=== PATIENT | female | born 1970 | race African-American/Black ===

== ENCOUNTER 2017-04-12 17:54 | Emergency (ER) | payer BC ==
--- NOTE | ~2017-04-12 | CR20 ---
[facility] A Service of [facility] RADIOLOGY TEXT RESULTS PATIENT: DOLORES GOODMAN LOCATION: SED : 72 UNIT #: [id number] AGE: [address]: Waleska Vences MD SEX: F ORDER DR: [id number] [address] [id number] [id number] E MR#: [id number] Acc #: [id number] NAME: DOLORES GOODMAN : 1970 SEX: F STUDY DATE/TIME: 04/12/2017 19:09 UNIT: SED ROOM: STUDY DESCRIPTION: CR Ankle Min 3 Views Lt Attending Physician: Waleska Vences M.D. Ordering Physician: Waleska Vences M.D. Primary Care Physician: Heraclio Quispe Aprn MEDICAL IMAGING REPORT This report is preliminary unless electronic signature is present. EXAM Left ankle, 3 views. COMPARISON 3 views left foot on the same date as well as on April 30, 2015. INDICATION 47-year-old female with left ankle pain since yesterday. No known injury. FINDINGS There is an os peroneum, normal anatomic variant. Bones are anatomically aligned. There is a tiny calcium density at the inferior tip of the lateral malleolus, favored to be chronic, perhaps due to remote sprain. Clinical correlation to exclude the possibility of acute avulsion fracture is recommended. IMPRESSION Tiny calcium density just inferior to the tip of the lateral malleolus, favored to be chronic but clinical correlation is recommended to exclude possibility of acute tiny avulsion fracture. Otherwise bones are anatomically aligned and intact. Dictated by... Niels Sheikh M.D. THIS IS AN ELECTRONICALLY VERIFIED REPORT Niels Sheikh M.D. at 04/18/2017 11:03 AM BLM/gz TD: 04/13/2017 12:06 JOB #: [id number] [facility] A Service of [facility] RADIOLOGY TEXT RESULTS PATIENT: DOLORES GOODMAN LOCATION: SED : 71 UNIT #: [id number] AGE: [address]: Waleska Vences MD SEX: F ORDER DR: MEDICAL IMAGING REPORT Page 1 of 1
--- NOTE | ~2017-04-12 | CR126 ---
[facility] A Service [facility] RADIOLOGY TEXT RESULTS PATIENT: DOLORES GOODMAN LOCATION: SED : [birth year] UNIT #: [id number] AGE: [address]: Waleska Vences MD SEX: F ORDER DR: [id number] [place] [id number] E MR#: [id number] Acc #: [id number] NAME: DOLORES GOODMAN : 1970 SEX: F STUDY DATE/TIME: 04/12/2017 19:09 UNIT: SED ROOM: STUDY DESCRIPTION: CR Foot Complete Min 3 View Lt Attending Physician: Waleska Vences M.D. Ordering Physician: Waleska Vences M.D. Primary Care Physician: Heraclio Quispe Aprn MEDICAL IMAGING REPORT This report is preliminary unless electronic signature is present. EXAM Left foot, 3 views COMPARISON April 30, 2015 as well as 3 views of the left ankle dated April 12, 2017. INDICATION 47-year-old female with left foot pain since yesterday. No known injury. FINDINGS There is a small os peroneum, a normal anatomic variant. Bones are anatomically aligned. No evidence of acute fracture or significant degenerative change. IMPRESSION Small os peroneum, a normal anatomic variant. Correlation with the site of the patient's pain is recommended. Otherwise normal exam. Dictated by... Niels Sheikh M.D. THIS IS AN ELECTRONICALLY VERIFIED REPORT Niels Sheikh M.D. at 04/18/2017 11:02 AM JOSE/ayala TD: 04/13/2017 12:09 JOB #: [id number] MEDICAL IMAGING REPORT [facility] A Service [facility] RADIOLOGY TEXT RESULTS PATIENT: DOLORES GOODMAN LOCATION: SED : 71 UNIT #: [id number] AGE: [address]: Waleska Vences MD SEX: F ORDER DR: Page 1 of 1
[~2017-04-12 17:54] MED LIST: IMITREX6 MG/0.5 M SQ; MOTRIN600 M2 PO; SPIRIVA18 MCG INH; SYMBICORT INH; TENORMIN25 MG PO; TYLENOL #3 PO
[2017-04-12] MEDS ORDERED: PROAIR HFA8.5 GM (18:41)
== END 2017-04-12 20:29 | disposition home or self-care (01) ==
LOC: SED 17:54
DX: S93.402A Sprain of unspecified ligament of left ankle, initial encounter (principal); J44.9 Chronic obstructive pulmonary disease, unspecified; F17.200 Nicotine dependence, unspecified, uncomplicated; Z98.51 Tubal ligation status; X58.XXXA Exposure to other specified factors, initial encounter
CPT/HCPCS: 29540; 73610; 73630; 99283